=== PATIENT | female | born 1945 | race Caucasian/White ===

== ENCOUNTER → 2016-06-30 | Outpatient (CLI) | payer MEDICARE, OTHER ==
[~2016-06-30] MED LIST: ASPIR-LOW81 MG PO; CITALOPRAM HBR20 MG PO; FLONASE 0.05% N16 GM; GLUCOPHAGE500 MG PO; IMDUR ER TAB 3030 MG PO; JANUVIA 100 MG100 MG PO; K-DUR TAB 20 M20 MEQ PO; NEOMYCIN-POLYMY10 M1 OT; NORVASC10 MG PO; PREDNISONE 20 M20 MG PO; RANITIDINE HCL300 MG PO; SINGULAIR10 MG PO; TOPROL XL25 MG PO; VITAMIN D32000 UNI1 PO; ZYRTEC10 M3 PO
== END ==
LOC: KOH-I 10:31
DX: J20.9 Acute bronchitis, unspecified (principal); R91.8 Other nonspecific abnormal finding of lung field
CPT/HCPCS: 71020

== ENCOUNTER → 2016-07-14 | Outpatient (CLI) | payer MEDICARE, OTHER | LOC: EMI 10:30 | DX: M54.2 Cervicalgia (principal); G89.4 Chronic pain syndrome; M48.02 Spinal stenosis, cervical region; M50.30 Other cervical disc degeneration, unspecified cervical region | CPT/HCPCS: 72141 ==

== ENCOUNTER → 2020-07-15 | Outpatient (CLI) | payer MEDICARE, OTHER | LOC: KOH-I 08:13 | DX: R06.02 Shortness of breath (principal); R91.8 Other nonspecific abnormal finding of lung field | CPT/HCPCS: 71046 ==

== ENCOUNTER → 2020-07-16 | Outpatient (CLI) | payer MEDICARE, OTHER ==
[2020-07-17 10:17] LABS: CREATININE, URINE 43.7 mg/dL (Not Estab.)
== END ==
LOC: US 09:53
PROVIDERS: Internal Medicine Nephrology
DX: M10.9 Gout, unspecified (principal); N28.89 Other specified disorders of kidney and ureter
CPT/HCPCS: 36415; 80053; 81001; 82043; 82570; 84156; 84550

== ENCOUNTER 2020-09-08 15:46 | Emergency (ER) | payer MEDICARE, OTHER ==
[2020-09-08 18:11] LABS: HEMOGLOBIN 14.3 gm/dl (12.3-15.3); RED BLOOD COUNT 4.97 M/UL (4.00-5.10); WHITE BLOOD COUNT 11.4 K/UL (4.5-11.0)
[2020-09-08 18:42] LABS: BUN/CREATININE RATIO 6 (0-10)
[2020-09-08] MEDS ORDERED: K-DUR TAB 20 M20 MEQ PO (20:43)
[2020-09-08] MEDS ORDERED: IMODIUM CAP 2 MG2 MG PO (20:43)
== END 2020-09-08 21:00 | disposition home or self-care (01) ==
LOC: ER1 15:46
PROVIDERS: Physician Assistant
DX: R07.89 Other chest pain (principal); E87.6 Hypokalemia; R19.7 Diarrhea, unspecified; E78.5 Hyperlipidemia, unspecified; I12.9 Hypertensive chronic kidney disease with stage 1 through stage 4 chronic kidney disease, or unspecified chronic kidney disease; E11.22 Type 2 diabetes mellitus with diabetic chronic kidney disease; N18.9 Chronic kidney disease, unspecified; Z90.49 Acquired absence of other specified parts of digestive tract
CPT/HCPCS: 71045; 80053; 82550; 82553; 83605; 83874; 84484; 85025; 87040; 93005; 99285

== ENCOUNTER → 2020-10-15 | Outpatient (CLI) | payer MEDICARE, OTHER ==
[~2020-10-15] MED LIST changes: +IMODIUM CAP 2 MG2 MG PO
[2020-10-15 09:28] LABS: BUN/CREATININE RATIO 22 (0-10)
[2020-10-16 10:13] LABS: CREATININE, URINE 43.4 mg/dL (Not Estab.)
== END ==
LOC: LAB 08:34
PROVIDERS: Internal Medicine Nephrology
DX: N18.9 Chronic kidney disease, unspecified (principal); M10.9 Gout, unspecified
CPT/HCPCS: 36415; 80053; 81001; 82043; 82570; 84156; 84550

== ENCOUNTER 2020-10-31 18:27 | Emergency (ER) | payer OTHER, MEDICARE ==
[2020-10-31] MEDS ORDERED: LODINE CAP 300300 MG PO (21:27)
== END 2020-10-31 21:55 | disposition home or self-care (01) ==
LOC: ER1 18:27
DX: S52.571A Other intraarticular fracture of lower end of right radius, initial encounter for closed fracture (principal); S01.81XA Laceration without foreign body of other part of head, initial encounter; I10 Essential (primary) hypertension; E11.9 Type 2 diabetes mellitus without complications; Z88.0 Allergy status to penicillin; Z88.2 Allergy status to sulfonamides; W01.0XXA Fall on same level from slipping, tripping and stumbling without subsequent striking against object, initial encounter; Y92.410 Unspecified street and highway as the place of occurrence of the external cause
CPT/HCPCS: 12011; 73110; 73130; 99283

== ENCOUNTER → 2020-11-03 | Outpatient (CLI) | payer MEDICARE, OTHER ==
[~2020-11-03] MED LIST changes: +LODINE CAP 300300 MG PO
== END ==
LOC: KOH-I 10:00
DX: S62.316A Displaced fracture of base of fifth metacarpal bone, right hand, initial encounter for closed fracture (principal); S62.304A Unspecified fracture of fourth metacarpal bone, right hand, initial encounter for closed fracture; S52.511A Displaced fracture of right radial styloid process, initial encounter for closed fracture
CPT/HCPCS: 73200

== ENCOUNTER → 2021-02-05 | Outpatient (CLI) | payer MEDICARE, OTHER | LOC: RAD 09:49 | DX: M25.511 Pain in right shoulder (principal); T84.038A Mechanical loosening of other internal prosthetic joint, initial encounter | CPT/HCPCS: 73030 ==

== ENCOUNTER → 2021-02-20 | Outpatient (CLI) | payer MEDICARE, OTHER ==
[2021-02-20 13:42] LABS: BUN/CREATININE RATIO 20 (0-10)
[2021-02-23 08:13] LABS: CREATININE, URINE 34.6 mg/dL (Not Estab.)
== END ==
LOC: LAB 11:42
PROVIDERS: Internal Medicine Nephrology
DX: N18.9 Chronic kidney disease, unspecified (principal)
CPT/HCPCS: 36415; 80053; 81001; 82043; 82570; 84156

== ENCOUNTER → 2021-03-04 | Outpatient (CLI) | payer MEDICARE, OTHER ==
[~2021-03-04] VITALS: Ht 157.5 cm; Wt 100.2 kg
== END ==
LOC: EROP 12:45
DX: U07.1 COVID-19 (principal); Z23 Encounter for immunization
CPT/HCPCS: M0247; Q0247

== ENCOUNTER → 2021-05-10 | Outpatient (CLI) | payer MEDICARE, OTHER | LOC: HEART 5 08:00 | DX: R07.9 Chest pain, unspecified (principal); I35.1 Nonrheumatic aortic (valve) insufficiency; R06.02 Shortness of breath | CPT/HCPCS: 78452; A9502; J2785 ==

== ENCOUNTER 2021-06-29 14:36 | Emergency (ER) | payer MEDICARE, OTHER | END 2021-06-29 17:04 | disposition home or self-care (01) | LOC: ER1 14:36 | DX: S40.011A Contusion of right shoulder, initial encounter (principal); S90.31XA Contusion of right foot, initial encounter; E11.9 Type 2 diabetes mellitus without complications; I10 Essential (primary) hypertension; V49.40XA Driver injured in collision with unspecified motor vehicles in traffic accident, initial encounter; Y92.410 Unspecified street and highway as the place of occurrence of the external cause | CPT/HCPCS: 73030; 73630; 99283 ==

== ENCOUNTER → 2021-07-09 | Outpatient (CLI) | payer MEDICARE, OTHER ==
[2021-07-10 10:16] LABS: CREATININE, URINE 47.2 mg/dL (Not Estab.); MICROALB/CREAT RATIO <6 (0-29)
== END ==
LOC: LAB 11:56
PROVIDERS: Internal Medicine Nephrology
DX: N18.9 Chronic kidney disease, unspecified (principal)
CPT/HCPCS: 36415; 80053; 81001; 82043; 82436; 82570; 84133; 84156

== ENCOUNTER 2021-09-02 13:55 | Emergency (ER) | payer MEDICARE, OTHER ==
[2021-09-02] MEDS ORDERED: HYDROCODON-ACE1 EAC4 PO (16:48)
== END 2021-09-02 16:59 | disposition home or self-care (01) ==
LOC: ER1 13:55
DX: S93.401A Sprain of unspecified ligament of right ankle, initial encounter (principal); S80.812A Abrasion, left lower leg, initial encounter; I10 Essential (primary) hypertension; E11.9 Type 2 diabetes mellitus without complications; Z79.84 Long term (current) use of oral hypoglycemic drugs; Z88.0 Allergy status to penicillin; Z88.2 Allergy status to sulfonamides; W17.89XA Other fall from one level to another, initial encounter
CPT/HCPCS: 72100; 73600; 99283

== ENCOUNTER 2021-09-29 14:16 | Inpatient (IN) | payer MEDICARE, OTHER ==
[~2021-09-29] VITALS: Ht 157.5 cm; Wt 100.2 kg
[~2021-09-29 14:16] MED LIST changes: +HYDROCODON-ACE1 EAC4 PO; +METOPROLOL TART25 MG PO; +POTASSIUM CHLO20 ME2 PO; -TOPROL XL25 MG PO
[2021-09-29 15:37] LABS: BUN/CREATININE RATIO 14 (0-10)
[2021-09-29 16:50] LABS: HEMOGLOBIN 12.4 gm/dl (12.3-15.3); RED BLOOD COUNT 4.67 M/UL (4.00-5.10)
[2021-09-29 16:53] LABS: WHITE BLOOD COUNT 38.3 K/UL (4.5-11.0)
[2021-09-30 05:17] LABS: HEMOGLOBIN 10.6 gm/dl (12.3-15.3)
[2021-09-30 05:18] LABS: RED BLOOD COUNT 3.99 M/UL (4.00-5.10); WHITE BLOOD COUNT 25.6 K/UL (4.5-11.0)
[2021-09-30] MEDS ORDERED: GABAPENTIN600 MG PO (08:30)
[2021-09-30] MEDS ORDERED: MUPIROCIN22 GM TOP (08:31)
[2021-09-30] MEDS ORDERED: ISOSORBIDE MONO30 MG PO (08:32)
[2021-09-30] MEDS ORDERED: HYDROCHLOROTHIA25 MG PO (08:33)
[2021-09-30] MEDS ORDERED: ATORVASTATIN CA40 MG PO (08:34)
[2021-09-30] MEDS ORDERED: ALLOPURINOL300 MG PO (08:34)
[2021-09-30] MEDS ORDERED: VITAMIN B-121000 MCG PO (08:35)
[2021-09-30] MEDS ORDERED: LOSARTAN POTASS25 MG PO (08:38)
[2021-09-30] MEDS ORDERED: OMEPRAZOLE20 MG PO (08:39)
[2021-10-01 05:20] LABS: BUN/CREATININE RATIO 19 (0-10)
[2021-10-01 09:59] LABS: RED BLOOD COUNT 3.71 M/UL (4.00-5.10)
[2021-10-01 10:11] LABS: WHITE BLOOD COUNT 16.1 K/UL (4.5-11.0)
[2021-10-02 04:41] LABS: HEMOGLOBIN 10.5 gm/dl (12.3-15.3); RED BLOOD COUNT 3.93 M/UL (4.00-5.10); WHITE BLOOD COUNT 14.2 K/UL (4.5-11.0)
[2021-10-02 05:24] LABS: BUN/CREATININE RATIO 18 (0-10)
[2021-10-03 02:35] LABS: HEMOGLOBIN 10.6 gm/dl (12.3-15.3); RED BLOOD COUNT 3.99 M/UL (4.00-5.10)
[2021-10-03 03:12] LABS: BUN/CREATININE RATIO 20 (0-10)
[2021-10-03] MEDS ORDERED: HUMIBID LA TAB600 MG PO (10:06)
[2021-10-04 06:48] LABS: HEMOGLOBIN 10.8 gm/dl (12.3-15.3); RED BLOOD COUNT 4.07 M/UL (4.00-5.10); WHITE BLOOD COUNT 15.4 K/UL (4.5-11.0)
[2021-10-04 06:59] LABS: BUN/CREATININE RATIO 21 (0-10)
[2021-10-04] MEDS ORDERED: OMNICEF 300 MG300 MG PO (15:00)
[2021-10-04] MEDS ORDERED: LOPRESSOR 25 MG25 MG PO (15:00)
[2021-10-04] MEDS ORDERED: FUROSEMIDE20 MG PO (15:00)
[2021-10-04] MEDS ORDERED: HYDROCODON-ACE1 EAC2 PO (15:05)
== END 2021-10-04 17:00 | disposition home health service (06) | DRG 871 ==
LOC: ER1 14:16 → CDU 17:05 → CCU 20:09 → M/S 10-01 19:02
PROVIDERS: Emergency Medicine; ADMIT Internal Medicine
PROC: 3E03329 Introduction of Other Anti-infective into Peripheral Vein, Percutaneous Approach (ICD-10-PCS; principal; 2021-09-29)
PROC: 3E043XZ Introduction of Vasopressor into Central Vein, Percutaneous Approach (ICD-10-PCS; 2021-09-29)
DX: A41.9 Sepsis, unspecified organism (principal); J18.9 Pneumonia, unspecified organism; Z20.822 Contact with and (suspected) exposure to COVID-19; R65.21 Severe sepsis with septic shock; N17.9 Acute kidney failure, unspecified; E87.1 Hypo-osmolality and hyponatremia; Z68.41 Body mass index [BMI] 40.0-44.9, adult; D63.1 Anemia in chronic kidney disease; E66.01 Morbid (severe) obesity due to excess calories; E87.6 Hypokalemia; R53.81 Other malaise; I12.9 Hypertensive chronic kidney disease with stage 1 through stage 4 chronic kidney disease, or unspecified chronic kidney disease; N18.9 Chronic kidney disease, unspecified; E11.22 Type 2 diabetes mellitus with diabetic chronic kidney disease; Z90.49 Acquired absence of other specified parts of digestive tract; Z90.710 Acquired absence of both cervix and uterus; Z98.42 Cataract extraction status, left eye; Z98.41 Cataract extraction status, right eye; Z98.51 Tubal ligation status; Z98.890 Other specified postprocedural states; Z88.0 Allergy status to penicillin; Z88.2 Allergy status to sulfonamides; Z80.6 Family history of leukemia; Z82.0 Family history of epilepsy and other diseases of the nervous system; Z79.4 Long term (current) use of insulin
CPT/HCPCS: 0240U; 36415; 51701; 71045; 71250; 80048; 80053; 80202; 81001; 82550; 82553; 82962; 83036; 83605; 83690; 83735; 83880; 84132; 84484; 85025; 85027; 86140; 87040; 93005; 96365; 96366; 96375; 97161; 97166; 99285; J0692; J1650; J1940; J3370; J7030; J7070; U0002

== ENCOUNTER 2021-10-18 15:03 | Emergency (ER) | payer MEDICARE, OTHER ==
[~2021-10-18 15:03] MED LIST changes: +ALLOPURINOL300 MG PO; +ATORVASTATIN CA40 MG PO; +FUROSEMIDE20 MG PO; +GABAPENTIN600 MG PO; +HUMIBID LA TAB600 MG PO; +HYDROCHLOROTHIA25 MG PO; +HYDROCODON-ACE1 EAC2 PO; +ISOSORBIDE MONO30 MG PO; +LOPRESSOR 25 MG25 MG PO; +LOSARTAN POTASS25 MG PO; +MUPIROCIN22 GM TOP; +OMEPRAZOLE20 MG PO; +OMNICEF 300 MG300 MG PO; +VITAMIN B-121000 MCG PO
[2021-10-18] MEDS ORDERED: ENDOCET 5-3251 EACH PO ×2 (18:31→18:43)
== END 2021-10-18 20:15 | disposition home or self-care (01) ==
LOC: ER1 15:03
DX: S32.029A Unspecified fracture of second lumbar vertebra, initial encounter for closed fracture (principal); W01.0XXA Fall on same level from slipping, tripping and stumbling without subsequent striking against object, initial encounter; Y92.009 Unspecified place in unspecified non-institutional (private) residence as the place of occurrence of the external cause
CPT/HCPCS: 70450; 72125; 72128; 72131; 99284

== ENCOUNTER → 2021-10-22 | Outpatient (CLI) | payer MEDICARE, OTHER ==
[~2021-10-22] MED LIST changes: +ENDOCET 5-3251 EACH PO
== END ==
LOC: LAB 07:59
DX: E11.65 Type 2 diabetes mellitus with hyperglycemia (principal); M1A.9XX0 Chronic gout, unspecified, without tophus (tophi)
CPT/HCPCS: 36415; 83036; 84550; 84681

== ENCOUNTER 2021-11-03 15:31 | Emergency (ER) | payer MEDICARE, OTHER ==
[2021-11-03 16:29] LABS: HEMOGLOBIN 12.3 gm/dl (12.3-15.3); RED BLOOD COUNT 4.65 M/UL (4.00-5.10); WHITE BLOOD COUNT 15.6 K/UL (4.5-11.0)
[2021-11-03 16:55] LABS: BUN/CREATININE RATIO 19 (0-10)
== END 2021-11-03 22:50 | disposition home or self-care (01) ==
LOC: ER1 15:31
PROVIDERS: Emergency Medicine
DX: R60.9 Edema, unspecified (principal); R29.6 Repeated falls; R07.9 Chest pain, unspecified; R06.02 Shortness of breath; R42 Dizziness and giddiness; E11.9 Type 2 diabetes mellitus without complications; I10 Essential (primary) hypertension; Z90.710 Acquired absence of both cervix and uterus; Z90.49 Acquired absence of other specified parts of digestive tract; R10.817 Generalized abdominal tenderness; Z91.041 Radiographic dye allergy status; Z88.0 Allergy status to penicillin; Z88.2 Allergy status to sulfonamides; Z51.81 Encounter for therapeutic drug level monitoring
CPT/HCPCS: 71045; 80053; 82550; 82553; 83880; 84484; 85025; 85610; 93005; 99285